=== PATIENT | female | born 1960 | race Caucasian/White ===

== ENCOUNTER 2023-05-23 11:51 | Emergency (ER) | payer OTHER ==
[2023-05-23] MEDS ORDERED: Amlodipine 5 MG TAB ONE (13:12)
== END 2023-05-23 14:42 | disposition home or self-care (01) ==
LOC: ERS 11:51
DX: I10 Essential (primary) hypertension (principal); Z79.82 Long term (current) use of aspirin; Z79.899 Other long term (current) drug therapy
CPT/HCPCS: 93005